=== PATIENT | male | born 2005 | race Hispanic/Latino ===

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

== ENCOUNTER 2023-05-05 23:41 | Emergency (ER) | payer BC ==
[~2023-05-05] VITALS: Ht 165.1 cm; Wt 75.7 kg
[~2023-05-05 23:41] MED LIST changes: +ONDA4TAB10 PO
[2023-05-05 23:43] VITALS: BP 189/88; PULSE 71; RESP 20
== END 2023-05-06 00:14 | disposition left against medical advice (07) ==
LOC: EDH 23:41
DX: R10.9 Unspecified abdominal pain (principal); R11.2 Nausea with vomiting, unspecified; Z53.21 Procedure and treatment not carried out due to patient leaving prior to being seen by health care provider

== ENCOUNTER 2024-04-10 11:48 | Emergency (ER) | payer BC ==
[~2024-04-10] VITALS: Ht 167.6 cm; Wt 86.2 kg
[~2024-04-10 11:48] MED LIST changes: -COMP10 PO; -ESOM20CA39 PO; +ESOM20CA51 PO; +ONDA-243 PO; -ONDA4TAB10 PO; +PROC-30 PO
[2024-04-10] MEDS: KETOROLAC 30MG VIAL (30MG/ML) IVP ONE (12:16)
[2024-04-10] MEDS: ONDANSETRON 4MG INJ IVP ONE (12:16)
[2024-04-10] MEDS ORDERED: IOHEXOL-350 75 ML VIAL IV ONE (12:17)
[2024-04-10] MEDS: 0.9%NACL 1000ML 1,000 ML IV ONE (12:17)
[2024-04-10 12:23] LABS: BASOPHILS # (AUTO) 0.05 K/uL (0.00-0.20); BASOPHILS % (AUTO) 0.4 % (0.0-5.0); HEMATOCRIT 42.2 % (42-54); IMMATURE GRANULOCYTE ABSOLUTE 0.04 K/uL (0-1); LYMPHOCYTES # (AUTO) 1.3 K/uL (1.0-4.8); LYMPHOCYTES % (AUTO) 9.9 % (21.0-51.0); MEAN CORPUSCULAR HEMOGLOBIN 29.5 pg (27.0-33.0); MEAN CORPUSCULAR HGB CONC 37.4 g/dL (32.0-36.0); MEAN CORPUSCULAR VOLUME 78.9 fL (80-100); MONOCYTES # (AUTO) 0.4 K/uL (0.1-1.0); NEUTROPHILS # (AUTO) 11.4 K/uL (1.8-7.7); NEUTROPHILS % (AUTO) 86.4 % (40.0-77.0); PLATELET COUNT (AUTO) 319 K/uL (130-400); RED BLOOD CELL COUNT(AUTO) 5.35 MIL/uL (4.50-6.20); RED CELL DISTRIBUTION WIDTH 12.2 % (11.0-15.5); WHITE BLOOD COUNT (AUTO) 13.2 K/uL (4.8-10.8)
[2024-04-10 12:38] LABS: CREATININE 1.2 mg/dL (0.5-1.3); POTASSIUM 3.2 mmol/L (3.5-5.1)
[2024-04-10 12:43] LABS: BILIRUBIN,TOTAL 0.8 mg/dL (0.2-1.0); TOTAL PROTEIN, SERUM 8.5 g/dL (6.0-8.3)
[2024-04-10] MEDS ORDERED: IBUP-2077 PO (13:19)
[2024-04-10] MEDS: POTASSIUM BICARB/CIT AC 25 MEQ TABLET.EFF PO ONE (13:41)
[2024-04-10 13:42] VITALS: BP 128/96; PULSE 70; RESP 18; O2SAT 100
== END 2024-04-10 13:44 | disposition home or self-care (01) ==
LOC: EDH 11:48
DX: S39.011A Strain of muscle, fascia and tendon of abdomen, initial encounter (principal); E87.6 Hypokalemia; R73.9 Hyperglycemia, unspecified; K21.9 Gastro-esophageal reflux disease without esophagitis; X50.9XXA Other and unspecified overexertion or strenuous movements or postures, initial encounter; Y93.89 Activity, other specified; Y92.89 Other specified places as the place of occurrence of the external cause; Y99.8 Other external cause status
CPT/HCPCS: 99284; 74177; 96374; 96361; 96375; 80053; 83690; 85025; 36415; J7030; J2405; J1885; Q9967

== ENCOUNTER 2024-07-23 19:14 | Emergency (ER) | payer BC ==
[~2024-07-23] VITALS: Ht 162.6 cm; Wt 77.1 kg
[~2024-07-23 19:14] MED LIST changes: +IBUP-2077 PO
[2024-07-23] MEDS: MAG/ALUM/SIMETH 30 ML UDCUP PO ONE (19:27)
[2024-07-23] MEDS: ondanSETRON 4MG INJ IVP ONE ×2 (19:27→20:15)
[2024-07-23 19:28] LABS: BASOPHILS # (AUTO) 0.08 K/uL (0.00-0.20); BASOPHILS % (AUTO) 0.6 % (0.0-5.0); HEMATOCRIT 43.7 % (42-54); IMMATURE GRANULOCYTE ABSOLUTE 0.05 K/uL (0-1); LYMPHOCYTES # (AUTO) 2.8 K/uL (1.0-4.8); LYMPHOCYTES % (AUTO) 21.1 % (21.0-51.0); MEAN CORPUSCULAR HEMOGLOBIN 29.7 pg (27.0-33.0); MEAN CORPUSCULAR HGB CONC 36.8 g/dL (32.0-36.0); MEAN CORPUSCULAR VOLUME 80.6 fL (80-100); MONOCYTES # (AUTO) 0.9 K/uL (0.1-1.0); MONOCYTES % (AUTO) 6.7 % (3.0-13.0); NEUTROPHILS # (AUTO) 9.3 K/uL (1.8-7.7); NEUTROPHILS % (AUTO) 71.2 % (40.0-77.0); PLATELET COUNT (AUTO) 357 K/uL (130-400); RED BLOOD CELL COUNT(AUTO) 5.42 MIL/uL (4.50-6.20); RED CELL DISTRIBUTION WIDTH 12.1 % (11.0-15.5); WHITE BLOOD COUNT (AUTO) 13.1 K/uL (4.8-10.8)
[2024-07-23] MEDS: ondanSETRON 4MG INJ ONE (19:28)
[2024-07-23] MEDS: 0.9%NACL 1000ML 1,000 ML IV ONE (19:28)
[2024-07-23] MEDS: FAMOTIDINE 20MG VIAL IV ONE ×2 (19:28→19:29)
[2024-07-23] MEDS: LIDOCAINE HCL 2% VISCOUS 15 ML UDCUP PO ONE (19:29)
[2024-07-23 19:36] LABS: CREATININE 1.5 mg/dL (0.5-1.3); POTASSIUM 3.5 mmol/L (3.5-5.1)
[2024-07-23 19:40] LABS: ALBUMIN 4.9 g/dL (3.5-5.0); TOTAL PROTEIN, SERUM 8.4 g/dL (6.0-8.3)
[2024-07-23 19:41] VITALS: TEMP 98.9
[2024-07-23 19:43] LABS: APPEARANCE,URINE CLOUDY (CLEAR); BILIRUBIN,URINE 0.5 mg/dL (NEGATIVE); COLOR,URINE YELLOW (YELLOW); GLUCOSE, URINE (UA) 30 mg/dL (NEGATIVE); KETONES,URINE 150 mg/dL (NEGATIVE); LEUKOCYTE ESTERASE ,URINE NEGATIVE Leu/uL (NEGATIVE); NITRATE,URINE NEGATIVE (NEGATIVE); OCCULT BLOOD,URINE NEGATIVE (NEGATIVE); PROTEIN,URINE 100 mg/dL (NEGATIVE)
[2024-07-23 19:44] LABS: ADD UA MICROSCOPIC YES
[2024-07-23 19:50] LABS: AMPHET/METH SCREEN,URINE NEGATIVE (NEGATIVE); BARBITURATE SCREEN, URINE NEGATIVE (NEGATIVE); BENZODIAZEPINES SCREEN,URINE NEGATIVE (NEGATIVE); CANNABINOID SCREEN,URINE POSITIVE (NEGATIVE); COCAINE SCREEN,URINE NEGATIVE (NEGATIVE); OPIATE SCREEN,URINE NEGATIVE (NEGATIVE); PHENCYCLIDINE SCREEN,URINE NEGATIVE (NEGATIVE)
[2024-07-23 19:56] LABS: BACTERIA,URINE RARE /HPF (None Seen); MUCUS,URINE MOD LPF (None Seen); SQUAMOUS EPITHELIAL CELL,UR RARE /HPF (0-2)
[2024-07-23] MEDS: SUCRALFATE 1 GM TABLET PO ONE (20:15)
[2024-07-23] MEDS: morPHINE 4 MG SYG IVP ONE (20:15)
[2024-07-23] MEDS ORDERED: OMEP40CA21 PO (20:33)
[2024-07-23] MEDS ORDERED: ONDA-243 PO (20:33)
[2024-07-23] MEDS ORDERED: SUCR1TAB28 PO (20:33)
[2024-07-23 20:44] VITALS: BP 122/67; PULSE 77; RESP 16; O2SAT 99
== END 2024-07-23 21:03 | disposition home or self-care (01) ==
LOC: EDH 19:14
DX: R11.2 Nausea with vomiting, unspecified (principal); F12.10 Cannabis abuse, uncomplicated; E86.0 Dehydration; U07.0 Vaping-related disorder; F17.200 Nicotine dependence, unspecified, uncomplicated; K21.9 Gastro-esophageal reflux disease without esophagitis; Z79.899 Other long term (current) drug therapy
CPT/HCPCS: 99284; 96374; 96375; 80053; 80305; 83690; 85025; 36415; 96376; 81001; J3490; J7030; J2405 ×2; J2270

== ENCOUNTER 2025-06-30 01:35 | Emergency (ER) | payer BC ==
[~2025-06-30] VITALS: Ht 165.1 cm; Wt 72.6 kg
[~2025-06-30 01:35] MED LIST changes: +OMEP40CA21 PO; +SUCR1TAB28 PO
--- NOTE | 2025-06-30 01:41 | ERN ---
ED Note History of Present Illness Stated Complaint: Patient comes he has some epigastric abdominal pain. He said that this has been for a week. He has has been he goes that has doctor they told him that has same thing over and over again. No right lower quadrant no rightupper quadrant pain Chief Complaint: Abdominal Pain Time Seen by MD: 01:38 Allergies: Coded Allergies: No Known Allergies (Unverified Allergy, Unknown, 03/26/19) Home Meds Active Scripts Ondansetron (Ondansetron Odt) 4 Mg Tab.rapdis, 4 MG PO Q6HPRN PRN for nausea, #16 TAB 0 Refills Prov:DOROTEO ALONSO NP 07/23/24 Omeprazole (Omeprazole) 40 Mg Capsule., 1 CAP PO DAILY for 30 Days, #30 CAP 0 Refills Prov:DOROTEO ALONSO DINING SERVER 07/23/24 Sucralfate (Carafate) 1 Gram Tablet, 1 GM PO ACHS for 10 Days, #40 TAB Prov:DOROTEO ALONSO DINING SERVER 07/23/24 Ibuprofen (Ibuprofen 800 mg Tab) 800 Mg Tab, 800 MG PO Q8H PRN for fever or pain, #30 TAB 0 Refills Prov:DOROTEO ALONSO NP 04/10/24 Ondansetron (Ondansetron Odt) 4 Mg Tab.rapdis, 4 MG PO TIDP PRN for NAUSEA/VOMITING, #12 TAB 0 Refills Prov:TARA VINCENT MD 06/17/22 Mag Hydrox/Al Hydrox/Simeth (Maalox Maximum Strength Susp) 355 Ml Oral.susp, 30 ML PO QID for ABD PAIN, #150 ML Prov:INGRID FERNANDEZ MD 05/29/22 Esomeprazole Magnesium (Esomeprazole Magnesium) 20 Mg Capsule., 20 MG PO DAILY for 30 Days, #30 CAP Prov:INGRID FERNANDEZ MD 05/29/22 Prochlorperazine Maleate (Compazine) 10 Mg Tab, 10 MG PO TID for NAUSEA, #15 TAB Prov:INGRID FERNANDEZ MD 05/29/22 Past Medical History Past Medical History: GERD Additional Past Medical Hx: GASTRITIS Surgical History: None Social History: Smokers, Drugs, ETOH, Lives with family, Other Review of System Dictation Constitutional: Negative for fever,chills, and weight loss Eyes: Negative for injury, pain,redness, and discharge ENT: Negative for injury,pain or swelling Cardiovascular: Negative for chest pain, palpitations, and edema Respiratory: Negative for shortness of breath, cough, and wheezing, Abdomen/GI: Negative for abdominal pain, nausea, vomiting, diarrhea, and constipation Back: Negative for injury and pain : Negative for injury, bleeding and discharge MS/Extremity: Negative for injury and deformity Skin: Negative for rash, and discoloration Neuro: Negative for headache, weakness, numbness, tingling, and seizure Psych: Negative for suicide ideation, homicidal ideation, and hallucinations Abdominal pain Initial Vital Sign VS Vital Signs Date Time Temp Pulse Resp B/P (MAP) Pulse Ox O2 Delivery O2 Flow Rate FiO2 06/30/25 01:38 98.4 96 16 159/117 98 Room Air 0 06/30/25 02:01 21 Physical Exam Dictation General: awake, alert, NAD Head/Face: Normocephalic, atraumatic Eyes: PERRL, EOMI, vision at baseline ENT: oral cavity clear, TMs clear, no signs of infection Neck: Trachea midline, supple, no nuchal rigidity Cardiovascular: RRR, normal S1/S2, No MRGs, no JVD Respiratory: CTAB, no respiratory distress, No rales or wheezes Abdomen: Soft, non-tender, non-distended, normal bowel sounds, no guarding or rebound. Skin: Warm, dry, normal turgor, no rash MS/Extremity: Pulses equal, no cyanosis, neurovascular intact, FROM Neuro: COAx4, GCS 15, strength 5/5, CN 2-12 intact, normal cerebellar exam, nor mal gait, Psych: Normal behavior, mood, and affect normal Epigastric abdominal pain Results (Laboratory/Radiology) Laboratory/Radiology Laboratory Tests Test 06/30/25 01:48 White Blood Count 10.7 K/uL (4.8-10.8) Red Blood Count 5.41 MIL/uL (4.50-6.20) Hemoglobin 16.3 g/dL (14.0-18.0) Hematocrit 42.3 % (42-54) Mean Corpuscular Volume 78.2 fL (80-100) L Mean Corpuscular Hemoglobin 30.1 pg (27.0-33.0) Mean Corpuscular Hemoglobin Concent 38.5 g/dL (32.0-36.0) H Red Cell Distribution Width 12.6 % (11.0-15.5) Platelet Count 386 K/uL (130-400) Mean Platelet Volume 9.5 fL (7.5-10.5) Immature Granulocyte % (Auto) 0.3 % (0-1) Neutrophils (%) (Auto) 63.7 % (40.0-77.0) Lymphocytes (%) (Auto) 27.0 % (21.0-51.0) Monocytes (%) (Auto) 8.3 % (3.0-13.0) Eosinophils (%) (Auto) 0.1 % (0.0-8.0) Basophils (%) (Auto) 0.6 % (0.0-5.0) Neutrophils # (Auto) 6.8 K/uL (1.8-7.7) Lymphocytes # (Auto) 2.9 K/uL (1.0-4.8) Monocytes # (Auto) 0.9 K/uL (0.1-1.0) Eosinophils # (Auto) 0.01 K/uL (0.00-0.70) Basophils # (Auto) 0.06 K/uL (0.00-0.20) Absolute Immature Granulocyte (auto 0.03 K/uL (0-1) Nucleated Red Blood Cells 0.0 % (0.0-0.19) Red Blood Cell Morphology See comments Sodium Level 132 mmol/L (136-145) L Potassium Level 2.9 mmol/L (3.5-5.1) *L Chloride Level 92 mmol/L (101-111) L Carbon Dioxide Level 19 mmol/L (21-32) L Blood Urea Nitrogen 17 mg/dL (7-18) Creatinine 1.0 mg/dL (0.5-1.3) Glomerular Filtration Rate Calc 110 mL/min (>90) Random Glucose 100 mg/dL (70-105) Total Calcium 9.8 mg/dL (8.5-10.1) Total Bilirubin 1.3 mg/dL (0.2-1.0) H Aspartate Amino Transf (AST/SGOT) 19 U/L (10-37) Alanine Aminotransferase (ALT/SGPT) 29 U/L (12-78) Alkaline Phosphatase 88 U/L (50-136) Troponin I High Sensitivity 6 ng/L (4-75) Total Protein 8.4 g/dL (6.0-8.3) H Albumin 5.3 g/dL (3.5-5.0) H Lipase 19 U/L (16-77) ED Course ED Course Orders Procedure Category Date Status Time Cbc With Differential LAB 06/30/25 Complete 01:38 Comprehensive LAB 06/30/25 Complete Metabolic Panel 01:38 Troponin I High LAB 06/30/25 Complete Sensitivity 01:38 Us Abdominal Ruq\Ltd US 06/30/25 Taken 01:38 12 Lead Ekg Tracing- EKG 06/30/25 Complete Technical 01:38 Lactated Ringers PHA 06/30/25 Complete 1000ml (Lactated 02:00 Acetaminophen 325 Tab PHA 06/30/25 Complete (Tylenol 325mg Tab 02:00 Ondansetron 4mg Inj PHA 06/30/25 Complete (Zofran 4mg Inj) 02:00 Ondansetron 4mg PHA 06/30/25 Complete Tablet (Zofran 4mg 02:00 Famotidine 20mg Tab PHA 06/30/25 Complete (Pepcid 20mg Tab) 02:00 Ct Abdomen/Pelvis W/O CT 06/30/25 Resulted Contrast 01:38 Lipase LAB 06/30/25 Complete 01:38 Morphine 4mg Syg PHA 06/30/25 Complete (Morphine 4mg Syg) 02:00 Potassium Chloride PHA 06/30/25 In Process 20meq Er (K-Dur/Klor- 03:30 Haloperidol Inj PHA 06/30/25 Complete (Haldol Inj) 03:30 Current Medications Medications (Trade) Dose Ordered Sig/Kati Route PRN Reason Start Time Stop Time Status Last Admin Dose Admin Acetaminophen (TYLenol 325MG TAB) 650 mg ONCE ONCE PO 06/30/25 02:00 06/30/25 02:01 DC 06/30/25 02:07 Famotidine (Pepcid 20mg Tab) 20 mg ONCE ONCE PO 06/30/25 02:00 06/30/25 02:01 DC 06/30/25 02:07 Haloperidol Lactate (Haldol Inj) 10 mg ONCE ONCE IM 06/30/25 03:30 06/30/25 03:31 DC 06/30/25 03:21 Lactated Ringer's 1,000 ml @ 0 mls/hr ONCE ONCE IV 06/30/25 02:00 06/30/25 02:01 DC 06/30/25 02:07 Morphine Sulfate (morPHINE 4MG SYG) 4 mg ONCE ONCE IVP 06/30/25 02:00 06/30/25 02:03 DC 06/30/25 02:08 Ondansetron HCl (zoFRAN 4MG TABLET) 4 mg ONCE ONCE PO 06/30/25 02:00 06/30/25 01:50 DC Ondansetron HCl (zoFRAN 4MG INJ) 4 mg ONCE ONCE IVP 06/30/25 02:00 06/30/25 02:01 DC 06/30/25 02:07 Potassium Chloride (K-Dur/Klor-Con 20meq) 60 meq DAILY PO 06/30/25 03:30 07/30/25 03:29 06/30/25 03:39 Vital Signs Date Time Temp Pulse Resp B/P (MAP) Pulse Ox O2 Delivery O2 Flow Rate FiO2 06/30/25 03:46 90 20 145/85 97 Room Air* 0 21 06/30/25 02:01 99.1 85 24 155/99 97 Room Air* 0 21 06/30/25 01:38 98.4 96 16 159/117 98 Room Air 0 Medical Decision Making MDM Upon further questioning patient states that he smokes marijuana daily on a daily basis. On the ultrasound. They said that there was some sludge. But no overt evidence. Of cholecystitis. The patient does not have white count. The vitals have improved his nausea or vomiting has not improved after medication stable for outpatient management MDM: Differential diagnosis: Rationale: Tests considered and ordered secondary to shared decision making include: Previous outside records reviewed: Old ER visits. Risk of complication and/or morbidity or mortality of patient management: None Medications-Per medication reconciliation Need for hospitalization: Patient does not meet criteria for hospitalization. Need for emergency major/minor surgery: No There are no social concerns with this patient. Prescription drug management Prescriptions will include symptomatic care Patient's prior external medical records from other ER visits were reviewed by me as indicated. Prior testing and results from previous visits were reviewed. Prior tests were taken into account with medical decision making and resource utilization, independent historian/historians were used to obtain complete medical history. I independently interpreted the test that were performed, results were reviewed by me and considered findings on radiology if ordered. Medical management and examination interpretation discussions were had by me with other qualified healthcare professionals as indicated for the patient's care. DX & DISP Disposition: Discharge Departure Impression: Primary Impression: Cannabis hyperemesis syndrome concurrent with and due to cannabis abuse Condition: Stable Referrals: FENG LANDERS (PCP) MOOK MOFFETT MD Jun 30, 2025 01:41
[2025-06-30 01:53] LABS: IMMATURE GRANULOCYTE ABSOLUTE 0.03 K/uL (0-1); NUCLEATED RED BLOOD CELLS 0.0 % (0.0-0.19); PLATELET COUNT (AUTO) 386 K/uL (130-400); RED BLOOD CELL COUNT(AUTO) 5.41 MIL/uL (4.50-6.20); RED CELL DISTRIBUTION WIDTH 12.6 % (11.0-15.5); WHITE BLOOD COUNT (AUTO) 10.7 K/uL (4.8-10.8)
--- NOTE | 2025-06-30 01:58 | EKG ---
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
[2025-06-30 02:01] VITALS: TEMP 99.2
[2025-06-30] MEDS: LACTATED RINGERS 1000ML 1,000 ML IV ONE (02:07)
[2025-06-30] MEDS: FAMOTIDINE 20MG TAB PO ONE (02:07)
[2025-06-30 02:32] LABS: ASPARTATE AMINOTRANSFERASE 19.0 U/L (10-37); CREATININE 1.0 mg/dL (0.5-1.3); GLOMERULAR FILTR. RATE CALC 110.0 mL/min (>90); GLUCOSE,RANDOM 100.0 mg/dL (70-105); SODIUM SERUM 132.0 mmol/L (136-145); TOTAL PROTEIN, SERUM 8.4 g/dL (6.0-8.3); UREA NITROGEN, BLOOD 17.0 mg/dL (7-18)
[2025-06-30] MEDS: HALOPERIDOL INJ 5 MG/ML VIAL IM ONE (03:21)
[2025-06-30] MEDS: PoTASSium chloRIDE 20MEQ ER 20 MEQ ERTAB PO SCH (03:39)
--- NOTE | 2025-06-30 03:42 | HMCIMG ---
EXAM: CT Abdomen and Pelvis without IV contrast CLINICAL HISTORY: Pain. TECHNIQUE: Thin collimated axial CT images of the abdomen and pelvis were obtained with sagittal and coronal reformatted images also submitted. CT scan is done according to ALARA (As Low As Reasonably Achievable). CONTRAST: None. COMPARISON: CT abdomen and pelvis dated 04/10/2024. FINDINGS: The included lungs are clear. Mild fatty liver. No focal abnormality within the liver, pancreas, spleen, adrenals, or kidneys. Questionable gallbladder sludge. The urinary bladder is suboptimally distended and grossly unremarkable. The prostate is within normal limits. No obvious bowel wall thickening, dilatation, or obstruction. Unremarkable appendix. Limited evaluation of the abdominal vessels due to the lack of intravenous contrast. No abdominal aortic aneurysm is evident. No pathological lymphadenopathy in the abdomen or pelvis. No ascites or pneumoperitoneum. No acute bony abnormality is evident. IMPRESSIONS: No acute process in the abdomen or pelvis. Mild fatty liver. Questionable gallbladder sludge. Recommend ultrasound of the gallbladder for further evaluation. Compared to the prior study, there is no significant interval change. /Nicola
--- NOTE | 2025-06-30 04:22 | HMCIMG ---
EXAM: US Abdomen, Right Upper Quadrant. CLINICAL HISTORY: Adominal Pain TECHNIQUE: Right upper quadrant sonography performed with image documentation. COMPARISON: CT abdominal pelvis from the same date. FINDINGS: The liver measures 14.4 cm. Increased echogenicity in the liver parenchyma, compatible with fatty liver. There is a 1.8 x 3.1 x 2 cm echogenic structure within the right hepatic lobe. The gallbladder wall thickness measures up to 3 mm. There are mobile gallstones and sludge. The CBD measures up to 3 mm in diameter. The pancreas is obscured due to the overlying bowel gas. The right kidney measures 10.5 x 4.2 x 5.1 cm. Suboptimal evaluation due to the patient's movement. IMPRESSION: Cholelithiasis and gallbladder sludge with a mildly thickened gallbladder wall, the possibility of acute cholecystitis cannot be excluded. Recommend a HIDA scan for further evaluation. Mild fatty liver. There is a 1.8 x 3.1 x 2 cm echogenic structure within the right hepatic lobe, this lesion corresponds with the prominent falciform ligament when compared with the recent CT. Further evaluation with triple-phase CT of the liver may be done if clinically warranted. /Nicola
[2025-06-30 04:27] VITALS: BP 138/81; PULSE 88; RESP 20; O2SAT 97
== END 2025-06-30 04:40 | disposition home or self-care (01) ==
LOC: EDH 01:35
DX: R11.2 Nausea with vomiting, unspecified (principal); F12.10 Cannabis abuse, uncomplicated; F17.200 Nicotine dependence, unspecified, uncomplicated; Z79.899 Other long term (current) drug therapy
CPT/HCPCS: 99285; 74176; 96374; 76705; 96375; 84484; 80053; 83690; 85025; 36415; 93005; 96372; J7120; J1630; J2405; J2270